=== PATIENT | male | born 2000 | race Caucasian/White ===

== ENCOUNTER 2024-11-18 13:16 | Emergency (ER) | payer OTHER ==
[~2024-11-18] VITALS: Ht 175.3 cm; Wt 68.1 kg
[2024-11-18] MEDS ORDERED: ACET1TAB55 PO (14:11)
[2024-11-18] MEDS: IBUPROFEN 600 MG TAB PO ONE (15:20)
[2024-11-18 15:24] VITALS: BP 119/72; TEMP 97.8; O2SAT 98
== END 2024-11-18 15:27 | disposition home or self-care (01) ==
LOC: M ED 14:32
DX: S62.336A Displaced fracture of neck of fifth metacarpal bone, right hand, initial encounter for closed fracture (principal); Y92.019 Unspecified place in single-family (private) house as the place of occurrence of the external cause; Y93.9 Activity, unspecified; Y99.9 Unspecified external cause status; W01.190A Fall on same level from slipping, tripping and stumbling with subsequent striking against furniture, initial encounter; F17.210 Nicotine dependence, cigarettes, uncomplicated; Z79.1 Long term (current) use of non-steroidal anti-inflammatories (NSAID)